=== PATIENT | male | born 1935 | race Caucasian/White ===

== ENCOUNTER 2016-08-27 14:37 | Emergency (ER) | payer MEDICARE, OTHER ==
[~2016-08-27] VITALS: Ht 177.8 cm; Wt 104.5 kg
[~2016-08-27 14:37] MED LIST: ACET-2023 PO; CARB1TAB14 PO; FINA5TAB9 PO; IMI25 PO; MULT1TAB17 PO; PRAV10TA2 PO; PROP40TA5 PO; TAMS0.4C98 PO
[2016-08-27 14:45] VITALS: BP 129/81; PULSE 71; RESP 20; O2SAT 98
--- NOTE | 2016-08-27 15:25 | ED.REPORT ---
HPI- Male Date of Service Aug 27, 2016 ED Provider: Iraj Addison MD Patient is an 80 year old male with a history of kidney stones who presents to the ED via EMS complaining of hematuria onset 3 days ago. Associated symptoms include dysuria. He denies fevers, nausea, vomiting, trouble voiding, or any other symptoms. He denies pain or any recent injury. He has had similar symptoms before. Per , she was prompted to call EMS due to generalized weakness with shaking and sweats onset today. He denies experiencing SOB, chest pain, or any other symptoms. He took an aspirin this morning. He is not on blood thinners. He has been on 20 mg of Prednisone for the past 3 mo for his trouble walking secondary to Parkinson's. Nursing Notes Stated Complaint: BLEEDING FROM PENIS Chief Complaint: General Complaint Nursing Notes Reviewed: Yes Allergies: Coded Allergies: No Known Allergies (Verified Allergy, Unknown, 02/19/14) Scheduled Acetaminophen (Pain Reliever) 500 Mg Tablet 500 MG PO Q 6HRS PRN Carbidopa/Levodopa 25-100 mg (Carbidopa/Levodopa 25-100 mg) 1 Each Tablet 2 EACH PO TID LEG WEAKNESS Finasteride (Finasteride) 5 Mg Tablet 5 MG PO HS Multivitamin W/Iron, Minerals (Compete) 1 Each Tablet 1 EACH PO DAILY Pravastatin (Pravastatin) 10 Mg Tablet 20 MG PO HS Propranolol HCl (Propranolol HCl) 40 Mg Tablet 40 MG PO BID FOR MIGRAINE PREVENTION Tamsulosin (Flomax) 0.4 Mg Capsule 0.4 MG PO DAILY Scheduled PRN Sumatriptan (Imitrex) 25 Mg Tablet 100 MG PO PRN PRN PRN For Headache General Time Seen by MD: 15:19 Chief Complaint Blood in urine Hx Obtained From: Patient, Spouse Arrived By: Ambulance Onset Occurred: 3 days ago Symptom Duration: Since onset Similar Sx Previous: Yes Past Medical History Past Medical History Notes: Urologist: Dr. Epstein Past Medical History BPH Parkinson's Reports: Hyperlipidemia, Denies: Hypertension Past Surgical History Retinal detachment repair Kidney stone removal Reports: Cataract surgery Smoking History Former Smoker Social History Other Social History: Good social support, Review of Systems Constitutional: Reports: Weakness - generalized, Denies: Fever GI: Denies: Nausea, Vomiting Male: Reports Hematuria, Denies Incontinence, Denies Urination decreased Skin: Reports Diaphoresis Complete sys rev & neg: except as marked. Respiratory: Denies: Shortness of breath Cardiovascular: Denies: Chest pain Neurologic: Reports: Shaking Physical Exam Initial Vital Signs Vital Signs (First) Date Time Temp Pulse Resp B/P Pulse Ox O2 Delivery O2 Flow Rate FiO2 08/27/16 14:45 37 71 20 129/81 98 Room Air Initial VS: Reviewed General/Constitutional: Well-developed, Well-nourished Skin: Warm, Dry Male Genitourinary: Atraumatic Cath draining grossly bloody urine General/Constitutional: Awake, Alert, Well developed Abdomen: Soft, Non-tender, BS normoactive Respiratory / Chest: Breath sounds NL, Breath sounds = bilat, No respiratory distress Cardiovascular: Heart rate NL, Regular rhythm, Heart sounds NL, No gallop, No murmurs, No rubs Back: No CVA tenderness Rectum / Perineum: Atraumatic Prostate enlarged, firm, and non-tender Interpretation & Diagnostics 900 cc post void residual in bladder Lab Results Interpretation Result Diagram: 08/27/16 1612 08/27/16 1612 Test 08/27/16 15:50 08/27/16 16:12 Urine Color Bloody (YELLOW) Urine Appearance Turbid (CLEAR,HAZY) Urine pH 7.0 (5.0-8.0) Urine Specific [place] 1.025 (1.003-1.035) Urine Protein 300mg/dL (NEG,TRACE) Urine Glucose (UA) 250mg/dL (NEGATIVE) Urine Ketones Negativemg/dL (NEGATIVE) Urine Occult Blood Large (NEGATIVE) Urine Nitrite Negative (NEGATIVE) Urine Bilirubin Negative (NEGATIVE) Urine Urobilinogen Normalmg/dL (NORMAL) Urine Leukocyte Esterase Negative (NEGATIVE) Urine RBC Packed/hpf (0-2) Urine WBC 0-5/hpf (0-5) Urine Epithelial Cells None/hpf (NONE-MOD) Urine Crystals None seen (NONE SEEN) Urine Bacteria None/hpf (NONE-FEW) Urine Hyaline Casts None/lpf (NONE) Urine Granular Casts None seen (NONE SEEN) Urine Waxy Casts None seen (NONE SEEN) Urine Red Blood Cell Casts None seen (NONE SEEN) Urine White Blood Cell Casts None seen (NONE SEEN) Urine Mucus None seen (None Seen) Urine Trichomonas None seen (NONE SEEN) Urine Yeast None (NONE SEEN) Urinalysis Comment None Urine Culture Reflexed Not indicated White Blood Count 19.8th/mm3 (3.8-10.1) Red Blood Count 4.42mil/mm3 (4.40-5.80) Hemoglobin 14.1g/dL (13.8-17.2) Hematocrit 40.0% (41.0-50.0) Mean Corpuscular Volume 90.5fL (81-100) Mean Corpuscular Hemoglobin 31.9pg (27.0-35.0) Mean Corpuscular Hemoglobin Concent 35.3% (32.0-37.0) Red Cell Distribution Width 14.8% (12.3-15.4) Platelet Count 328bil/L (150-400) Neutrophils (%) (Auto) 78.2% (40-74) Lymphocytes (%) (Auto) 13.4% (14-46) Monocytes (%) (Auto) 5.4% (4-12) Eosinophils (%) (Auto) 0.4% (0-5) Basophils (%) (Auto) 0.3% (0-3) Sodium Level 132mEq/L (134-144) Potassium Level 4.5mEq/L (3.5-5.2) Chloride Level 92mEq/L (97-108) Carbon Dioxide Level 22mmol/L (18-29) Blood Urea Nitrogen 18mg/dL (8-27) Creatinine 1.04mg/dL (0.76-1.27) Estimat Glomerular Filtration Rate 73mL/min (>59) Glucose Level 191mg/dL (60-99) Calcium Level 9.4mg/dL (8.5-10.1) Total Bilirubin 0.8mg/dL (0.0-1.2) Aspartate Amino Transf (AST/SGOT) 14U/L (0-50) Alanine Aminotransferase (ALT/SGPT) 6U/L (0-44) Alkaline Phosphatase 50U/L (25-160) Troponin T < 0.010ug/L (0.0-0.011) Total Protein 6.7g/dL (6.4-8.4) Albumin 4.1g/dL (3.4-5.0) Hold Sharp Top Tube Received (Received) Lab Results Interpretation: Chest X-ray, One-view, portable: IMPRESSION: No acute pulmonary process. CT KUB: IMPRESSION: 1. Bladder is filled with blood. Prostate is prominently enlarged. De Oliveira catheter seen into the bladder. 2. Question of abnormal soft tissue density involving the anterior right side of the bladder wall. 3. No abnormalities seen in kidneys or ureters on this exam. 4. 26 mm gallstone in the gallbladder. 5. Multiple diverticula without inflammation. Dictated by: Jesus Jay M.D. on 08/27/2016 at 17:35 Approved by: Jesus Jay M.D. on 08/27/2016 at 17:44 Dictated by: Sharifa Bailey M.D. on 08/27/2016 at 16:22 Approved by: Sharifa Bailey M.D. on 08/27/2016 at 16:22 ECG Interpretation ECG Interpretation: sinus rate 70 RBBB Time: 15:51 Interpreted by: ED physician Re-Eval/Medical Decision Med Decision/Clinical Course 80-year-old male with gross hematuria and also had an episode of diaphoresis and generalized weakness earlier. In the Emergency department today with found to have a markedly distended bladder. He has a leukocytosis however is on steroids. He is not febrile and no source of infection is identified. According to his he is now back at baseline, we have placed a De Oliveira catheter and urine is draining. He does not have a ureteral stone. The patient is to follow up with urology next week. Source of Hx: Old records Re-Evaluation/Progress #1: Time of Eval: 18:54 Re-Evaluation/Progress Note: Rechecked patient. Discussed imaging results. Discussed plan for discharge with urology follow-up. Patient understands and agrees with plan. All questions addressed at this time. Re-Evaluation/Progress #2: Time of Eval: 20:26 Re-Evaluation/Progress Note: Upon road test, patient is at baseline. Consultation : Referral / Consult Name: Sudha Epstein MD Consulted With: Urology Call Returned at: 18:14 Hand Molder Meat: Agrees with eval, Agrees with plan Note: Discussed patient's case. Counseled Regarding: Diagnosis, Lab results, Need for follow-up, When/why to return to ED Discharge & Departure Impression: Primary Impression: Gross hematuria Additional Impression: Urinary retention Disposition: Home Discharge Condition All VS Reviewed: Yes Condition: Improved Additional Instructions: Emergency department evaluation today included interview, examination. We noted blood in the urine, without ureteral stone or sign of infection. Bladder was distended and markedly even after voiding, a De Oliveira catheter was placed. Keep catheter in place. You need to call Dr. Epstein tomorrow to follow-up this week. Drink plenty of fluids and keep your catheter in to help keep your bladder drained. Return to emergency department if urine stops draining in the catheter, if you develop fevers or shaking chills. Continue previous home medications including tamsulosin. Thanks for dressings with your care today Referrals: aVleriy Allen MD (PCP) Sudha Epstein MD Scribe Attestation Portions of this note were transcribed by Carlton Colón. I, Dr. Addison personally performed the history, physical exam and medical decision-making; I reviewed and confirmed the accuracy of the information in the transcribed note. Signed by: Carlton Colón 08/27/162021 copies to: Valeriy Allen MD; Sudha Epstein MD, Donald L MD Aug 27, 2016 15:25 CARLTON COLÓN Aug 27, 2016 15:33
[2016-08-27 16:05] LABS: APPEARANCE,URINE TURBID (CLEAR,HAZY); COLOR,URINE BLOODY (YELLOW); OCCULT BLOOD,URINE LARGE (NEGATIVE)
[2016-08-27 16:06] LABS: UROBILINOGEN,URINE NORMAL (NORMAL)
[2016-08-27 16:16] LABS: BASOPHILS % (AUTO) 0.3 % (0-3); EOSINOPHILS % (AUTO) 0.4 % (0-5); MONOCYTES % (AUTO) 5.4 % (4-12); Mean Corpuscular Hemoglobin 31.9 pg (27.0-35.0); Mean Corpuscular Volume 90.5 fL (81-100); NEUTROPHILS % (AUTO) 78.2 % (40-74); Platelet Count 328 bil/L (150-400)
--- NOTE | 2016-08-27 16:24 | DRSVH ---
PROCEDURE: X-RAY CHEST ONE VIEW, PORTABLE ([id number]) INDICATIONS: weak and shaking TECHNIQUE: One view of the chest was acquired. COMPARISON: [facility], , CHEST 1VW (PORTABLE), 03/11/2012, 13:25. FINDINGS: Surgical changes and devices: None. Lungs and pleura: There is a persistent appearance of bibasilar linear opacities, likely atelectasis/ scarring. No acute consolidations or effusions. Mediastinum: Mediastinal contours appear normal. Heart size is normal. Bones and chest wall: No suspicious bony lesions. Overlying soft tissues appear unremarkable. IMPRESSION: No acute pulmonary process. Dictated by: Sharifa Bailey M.D. on 08/27/2016 at 16:22 Approved by: Sharifa Bailey M.D. on 08/27/2016 at 16:22
[2016-08-27 16:40] LABS: TROPONIN T < 0.010 ug/L (0.0-0.011)
--- NOTE | 2016-08-27 17:45 | DRSVH ---
PROCEDURE: CT KUB ([id number]) INDICATIONS: hematuria, history of ureteral stones TECHNIQUE: Noncontrast 5 mm thick sections acquired from the diaphragms to the symphysis. 5 mm thick coronal an d sagittal reformats were then performed. For radiation dose reduction, the following was used: aut omated exposure control, adjustment of mA and/or kV according to patient size. COMPARISON: [facility], CT, ABD/PELVIS W&WO CON (PNL), 01/24/2014, 14:28. FINDINGS: Image quality: Excellent. Lung bases: Lung bases are clear. Heart size is normal. Urinary system: Both kidneys are normal in size. No kidney stones. No hydronephrosis or asymmetric perinephric fat stranding. Both ureters appear non-dilated throughout their expected courses. Bladd er is filled with relatively high density likely consistent with blood. There is a De Oliveira catheter in place. Prostate is prominently enlarged. There is suggestion of some slight thickening of the wall of the bladder anterior and towards the right side. Other solid organs: Liver and spleen are normal in size. Gallbladder contains a 26 mm gallstone wit hin it.. Pancreas is normal in contours. No adrenal nodules. Peritoneum and bowel: Unenhanced bowel loops demonstrate normal wall thickness and caliber. No free fluid or air. Multiple diverticula without inflammation. Nodes and vessels: No retroperitoneal or mesenteric adenopathy by size criteria. Aorta and inferior vena cava are normal in caliber. Abdominal wall: No ventral hernias. Pelvis: No free pelvic fluid. No inguinal hernias or adenopathy. Bones: No suspicious bony lesions. No vertebral body compression fractures. IMPRESSION: 1. Bladder is filled with blood. Prostate is prominently enlarged. De Oliveira catheter seen into the bladd er. 2. Question of abnormal soft tissue density involving the anterior right side of the bladder wall. 3. No abnormalities seen in kidneys or ureters on this exam. 4. 26 mm gallstone in the gallbladder. 5. Multiple diverticula without inflammation. Dictated by: Jesus Jay M.D. on 08/27/2016 at 17:35 Approved by: Jesus Jay M.D. on 08/27/2016 at 17:44
[2016-08-27 18:39] VITALS: BP 115/71; PULSE 67; O2SAT 97
[2016-08-27 20:29] VITALS: BP 120/72; PULSE 78; RESP 16; O2SAT 95
== END 2016-08-27 21:20 | disposition home or self-care (01) ==
LOC: EDBD 14:37 → SED 14:37
DX: R31.0 Gross hematuria (principal); R33.9 Retention of urine, unspecified; G20 Parkinson's disease; E78.5 Hyperlipidemia, unspecified; Z87.891 Personal history of nicotine dependence

== ENCOUNTER 2016-11-17 16:18 | Emergency (ER) | payer MEDICARE, OTHER ==
[~2016-11-17] VITALS: Ht 175.3 cm; Wt 100.0 kg
[2016-11-17 16:28] VITALS: BP 155/48; PULSE 71; RESP 19; O2SAT 95
--- NOTE | 2016-11-17 16:29 | ED.REPORT ---
HPI-General Illness Date of Service Nov 17, 2016 ED Provider: Dr. Jacob 81 y/o male with a hx of benign prostate hypertrophy, Parkinson's and hyperlipidemia reports to the ED via EMS complaining of blood in the catheter bag, onset 3 hours ago. The pt noticed the blood after his home health nurse changed the catheter. Associated sx include burning pain in glans penis. He denies pain in testicles, vomiting, fever, and abdominal pain. He takes Flomax. Nursing Notes Stated Complaint: CATHETER PROBLEMS Chief Complaint: Male Abdominal Pain Nursing Notes Reviewed: Yes Allergies: Coded Allergies: No Known Allergies (Verified Allergy, Unknown, 02/19/14) Scheduled Acetaminophen (Pain Reliever) 500 Mg Tablet 500 MG PO Q 6HRS PRN Carbidopa/Levodopa 25-100 mg (Carbidopa/Levodopa 25-100 mg) 1 Each Tablet 2 EACH PO TID LEG WEAKNESS Finasteride (Finasteride) 5 Mg Tablet 5 MG PO HS Multivitamin W/Iron, Minerals (Compete) 1 Each Tablet 1 EACH PO DAILY Pravastatin (Pravastatin) 10 Mg Tablet 20 MG PO HS Propranolol HCl (Propranolol HCl) 40 Mg Tablet 40 MG PO BID FOR MIGRAINE PREVENTION Tamsulosin (Flomax) 0.4 Mg Capsule 0.4 MG PO DAILY Scheduled PRN Sumatriptan (Imitrex) 25 Mg Tablet 100 MG PO PRN PRN PRN For Headache General Time Seen by MD: 16:29 Chief Complaint Other (Blood in catheter bag) Hx Obtained From: Patient Arrived By: Ambulance Sudden in Onset?: Yes Onset Occurred: 1 - 4 hours ago Symptom Duration: Since onset Quality: Burning Severity: Current: Mild (glans penis) Severity: Maximum: Mild Recent Healthcare: No recent doctor visit Similar Sx Previous: No Past Medical History Past Medical History Notes: Urologist: Dr. Epstein Past Medical History BPH Parkinson's Reports: Hyperlipidemia Past Surgical History Retinal detachment repair Kidney stone removal Reports: Cataract surgery Smoking History Former Smoker Social History Other Social History: Good social support, Review of Systems Reports: burning pain in glans penis Full Review of Systems Constitutional: Denies: Fever GI: Denies: Abdominal pain Male: Reports Hematuria, Denies Testicular pain Complete sys rev & neg: except as marked. Physical Exam Vital Signs Vital Signs Date Time Temp Pulse Resp B/P Pulse Ox O2 Delivery O2 Flow Rate FiO2 11/17/16 16:28 37.2 71 19 155/48 95 Room Air Initial VS: Reviewed, Vital signs normal Head / Eyes: Atraumatic, Normocephalic Neck: Full range of motion Respiratory: Breath sounds normal, No respiratory distress Cardiovascular: Regular rate & rhythm, Heart sounds normal Abdomen / GI: Soft, Non-tender Extremities: Vascular intact, Neuro intact, No swelling, No tenderness Skin: Warm, Dry, No cyanosis Neurologic: Alert, Oriented, Nonfocal Back: Atraumatic, Full range of motion Male Genitourinary: Atraumatic, Testes NL Haro catheter in place. Abundio blood and clots in haro bag. Perineal area and testicles non tender. Procedures Haro Catheter Time: 17:15 Procedure Performed by: [facility] pract Consent / Setup / Site Prep: Consent from patient, Hand hygiene observed, Stand sterile technique, Standard Haro site prep Haro Insertion: Urethra Size of Catheter: 22 Fr Catheter Type: Haro Haro Connected to: Leg bag Insertion / Complications: Insertion successful, No complications Re-Eval/Medical Decision Med Decision/Clinical Course Patient presents with catheter obstruction due to catheter replacement and local trauma to the urethra or prostate. Initial attempts were made to flush the catheter ultimately the catheter was replaced and irrigated until clear. Patient has no constitutional symptoms or signs of urinary tract infection and no urinalysis was obtained as this is directly related to the trauma putting a catheter in. Recommend that he follow very closely with his urologist and return to the ER as needed if worse. Time of Eval: 17:40 Patient Status: Condition improved Re-Evaluation/Progress Note: Rechecked pt. Discussed diagnosis. Informed the pt of the plan to discharge. Pt understands and agrees with plan. F/U instructions and RTER warning given. All questions addressed. Counseled Regarding: Diagnosis, Need for follow-up, When/why to return to ED Discharge & Departure Primary Impression: Obstructed Haro catheter Disposition: Home Discharge Condition All VS Reviewed: Yes Condition: Stable Patient Instructions: Haro Catheter Insertion (ED) Additional Instructions: Your catheter was removed and exchanged for a 22 Kiswahili three-way Haro. Keep the area clean, call your urologist in the morning for repeat evaluation. Return to the ER for recurrent urinary obstruction, high fever, bleeding, or any other concerns. Referrals: Valeriy Allen MD (PCP) Scribe Attestation Portions of this note were transcribed by Gordy Veloz. I, , personally performed the history, physical exam and medical decision-making;I reviewed and confirmed the accuracy of the information in the transcribed note. Signed by Eagle Armendariz. 11/17/16 17:47 copies to: Valeriy Allen MD, Timothy S DO Nov 17, 2016 16:29 Gordy Veloz Nov 17, 2016 17:07
[2016-11-17] MEDS ORDERED: Lidocaine 2% 6mL Topical Jelly ONE (17:15)
[2016-11-17 18:05] VITALS: BP 138/68; PULSE 71; RESP 18; O2SAT 93
[2016-11-17 18:24] VITALS: BP 138/68; PULSE 71; RESP 18; O2SAT 93
[2016-11-18] MEDS ORDERED: PHEN-777 PO (01:58)
== END 2016-11-17 18:15 | disposition home or self-care (01) ==
LOC: SED 16:18 → EDBD 16:18 → SED 18:15
DX: T83.098A Other mechanical complication of other urinary catheter, initial encounter (principal); Y93.89 Activity, other specified; Y92.9 Unspecified place or not applicable; Y99.8 Other external cause status; N40.0 Benign prostatic hyperplasia without lower urinary tract symptoms; G20 Parkinson's disease; E78.5 Hyperlipidemia, unspecified; Z46.6 Encounter for fitting and adjustment of urinary device; Z87.891 Personal history of nicotine dependence

== ENCOUNTER 2016-11-17 23:08 | Emergency (ER) | payer MEDICARE, OTHER ==
[~2016-11-17] VITALS: Ht 175.3 cm; Wt 230.0 kg
[2016-11-17 23:15] VITALS: BP 116/64; PULSE 66; RESP 20; O2SAT 94
--- NOTE | 2016-11-17 23:17 | ED.REPORT ---
HPI-Abd Pain M 40 and Over Date of Service Nov 17, 2016 ED Provider: Jass Amaro MD An 81 year old male with a history of hypercholesteremia, BPH and Parkinson's disease is brought to the ED via EMS due to problems with his urinary catheter. The pt was seen in the ED earlier today due to bleeding in his catheter. The catheter was irrigated and cleared, and replaced with a 22 indwelling three-way catheter. The pt began bleeding again following discharge at 18:00. The pt stood up tonight and began bleeding a significant amount around his catheter. This was accompanied by significant abdominal and penile pain, which improved significantly after he received Morphine en route. The pt denies fever or pulling on the catheter at any point, as well as blood thinner use. Nursing Notes Stated Complaint: BLOOD IN CATHETER,SEVERE PAIN Chief Complaint: Male Abdominal Pain Nursing Notes Reviewed: Yes Allergies: Coded Allergies: No Known Allergies (Verified Allergy, Unknown, 02/19/14) Scheduled Acetaminophen (Pain Reliever) 500 Mg Tablet 500 MG PO Q 6HRS PRN Carbidopa/Levodopa 25-100 mg (Carbidopa/Levodopa 25-100 mg) 1 Each Tablet 2 EACH PO TID LEG WEAKNESS Finasteride (Finasteride) 5 Mg Tablet 5 MG PO HS Multivitamin W/Iron, Minerals (Compete) 1 Each Tablet 1 EACH PO DAILY Pravastatin (Pravastatin) 10 Mg Tablet 20 MG PO HS Propranolol HCl (Propranolol HCl) 40 Mg Tablet 40 MG PO BID FOR MIGRAINE PREVENTION Tamsulosin (Flomax) 0.4 Mg Capsule 0.4 MG PO DAILY Scheduled PRN Phenazopyridine (Phenazopyridine) 200 Mg Tablet 200 MG PO TID PRN PRN dysuria Sumatriptan (Imitrex) 25 Mg Tablet 100 MG PO PRN PRN PRN For Headache General Time Seen by MD: 23:16 Chief Complaint Other (Urinary catheter problem) Hx Obtained From: Patient, EMS Arrived By: Ambulance Sudden in Onset?: Yes Onset Occurred: 1 - 4 hours ago Symptom Duration: Since onset Recent Healthcare: No recent hospitalization, Recent doctor visit Similar Sx Previous: No Past Medical History Past Medical History Notes: Urologist: Dr. Epstein Past Medical History BPH Parkinson's Hypercholesteremia Reports: Hyperlipidemia Past Surgical History Retinal detachment repair Kidney stone removal Reports: Cataract surgery Smoking History Former Smoker Social History Other Social History: Good social support, Review of Systems Review of Systems Note: bleeding around catheter penile pain Constitutional: Denies: Fever Respiratory: Denies: Non-productive cough, Shortness of breath Cardiovascular: Denies: Chest pain GI: Reports: Abdominal pain Musculoskeletal: Denies: Back pain Complete sys rev & neg: except as marked. Physical Exam Initial Vital Signs Vital Signs (First) Date Time Temp Pulse Resp B/P Pulse Ox O2 Delivery O2 Flow Rate FiO2 11/17/16 23:15 36.8 66 20 116/64 94 Room Air Initial VS: Reviewed General/Constitutional: Awake, Alert Respiratory / Chest: Atraumatic, Breath sounds NL, Breath sounds = bilat, No respiratory distress Cardiovascular: Heart rate NL, Regular rhythm, Heart sounds NL Abdomen: Atraumatic, Soft, Non-tender, No distention Back: Atraumatic, Full range of motion Head / Eyes: Atraumatic, Normocephalic, PERRL, EOMI ENT: Atraumatic, Airway patent, Mucous membranes moist Skin: Atraumatic, Color NL, No rash, Warm, Dry Male Genitourinary: No mass blood around De Oliveira catheter catheter not displaced downwards and firmly attached to leg band Neurologic: Oriented X3, Speech NL, No motor deficits, No sensory deficits Neck: Atraumatic, Supple, Full range of motion Upper Extremity / MS: Atraumatic, Full range of motion Lower Extremity / Pelvis / MS: Atraumatic, Full range of motion Psychiatric: Affect NL, Mood NL Interpretation & Diagnostics Lab Results Interpretation Test 11/17/16 23:23 Hold Purple Top Tube Received (Received) Hold Blue Top Tube Received (Received) Hold Red Top Tube Received (Received) Hold [place] Top Tube Received (Received) Re-Eval/Medical Decision Med Decision/Clinical Course 81-year-old with some bleeding around the through a De Oliveira catheter, but no evidence of obstruction and free flow from both bladder lumens of his triple lumen. His discomfort appears to be from traction on the De Oliveira bringing the balloon into contact with the prostate and trigone. The balloon was deflated and the sterilized catheter slid and slightly the balloon reinflated and brought gently backed to the floor the bladder. There is no additional bleeding. He was given some Pyridium with some relief. Discharge now with Pyridium for comfort. Follow up with PCP and urology as planned. Source of Hx: Old records Time of Eval: 01:53 Re-Evaluation/Progress Note: Pt rechecked, whose catheter is draining normally. The diagnosis and plan for discharge are discussed. The pt understands and agrees with the plan. All questions are addressed at this time. Counseled Regarding: Diagnosis, Lab results, Need for follow-up, When/why to return to ED Discharge & Departure Primary Impression: Gross hematuria Additional Impression: De Oliveira catheter problem Encounter type: subsequent encounter Qualified Code: T83.9XXD - Unspecified complication of genitourinary prosthetic device, implant and graft, subsequent encounter Disposition: Home Vital Signs - All Vital Signs Date Time Temp Pulse Resp B/P Pulse Ox O2 Delivery O2 Flow Rate FiO2 11/18/16 02:28 98 20 125/65 95 Room Air 11/17/16 23:15 36.8 66 20 116/64 94 Room Air )( All Prior VS Reviewed: Yes Condition: Stable Patient Instructions: De Oliveira Catheter Placement and Care (ED) Additional Instructions: Follow-up with your doctor and with urology as previously discussed. Return if it seems to obstruct and cause pain. This will be apparent if urine stops flowing into the bag. A moderate amount of blood in the bag is not a great concern. If you see bright red blood in quantity, large clots, or other new symptoms of concern, return any time. Pyridium to three times daily as needed for discomfort. Referrals: Valeriy Allen MD (PCP) Eagle Attestation Portions of this note were transcribed by Rosendo Whitaker. I, Dr. Amaro personally performed the history, physical exam and medical decision-making; I reviewed and confirmed the accuracy of the information in the transcribed note. Signed by: Eagle Gurrola, 11/18/16 and 0203. copies to: Valeriy Allen MD, Christopher W MD Nov 17, 2016 23:17 ROSENDO WHITAKER Nov 17, 2016 23:30
[2016-11-18] MEDS ORDERED: Phenazopyridine 97.5 mg Tablet PO ONE (01:10)
[2016-11-18] MEDS ORDERED: PHEN-777 PO (01:58)
[2016-11-18 02:28] VITALS: BP 125/65; PULSE 98; RESP 20; O2SAT 95
== END 2016-11-18 02:30 | disposition home or self-care (01) ==
LOC: EDUNIT# 23:08 → SED 23:08 → EDBD 23:08 → SED 11-18 02:30
DX: T83.9XXD Unspecified complication of genitourinary prosthetic device, implant and graft, subsequent encounter (principal); N40.0 Benign prostatic hyperplasia without lower urinary tract symptoms; E78.5 Hyperlipidemia, unspecified; E78.00 Pure hypercholesterolemia, unspecified; Z87.891 Personal history of nicotine dependence; Y84.6 Urinary catheterization as the cause of abnormal reaction of the patient, or of later complication, without mention of misadventure at the time of the procedure